=== PATIENT | male | born 1995 | race Caucasian/White ===

== ENCOUNTER → 2023-09-09 12:28 | Outpatient (REF) | payer BC, SELFPAY | LOC: HWRAD 12:28 | PROVIDERS: ATTENDING PHYSICIAN Urology; FAMILY PHYSICIAN Student in an Organized Health Care Education/Training Program | DX: C62.11 Malignant neoplasm of descended right testis (principal) | CPT/HCPCS: 74178; Q9967 ==

== ENCOUNTER → 2024-03-16 08:45 | Outpatient (REF) | payer BC, SELFPAY | LOC: HWRAD 08:45 | PROVIDERS: ATTENDING PHYSICIAN Urology; FAMILY PHYSICIAN Student in an Organized Health Care Education/Training Program | DX: C62.11 Malignant neoplasm of descended right testis (principal) | CPT/HCPCS: 74178; Q9967 ==

== ENCOUNTER → 2025-03-22 08:17 | Outpatient (REF) | payer BC, SELFPAY | LOC: RAD 08:17 | PROVIDERS: ATTENDING PHYSICIAN Urology | DX: C62.11 Malignant neoplasm of descended right testis (principal) | CPT/HCPCS: 74178; Q9967 ==